=== PATIENT | female | born 1935 | race Caucasian/White ===

== ENCOUNTER → 2017-03-20 | Outpatient (CLI) | payer OTHER, MEDICARE | LOC: BMCIMAGING 11:17 | PROVIDERS: ATTEND Internal Medicine | DX: M19.011 Primary osteoarthritis, right shoulder (principal); M25.511 Pain in right shoulder ==

== ENCOUNTER → 2017-07-15 | Outpatient (CLI) | payer OTHER, MEDICARE | LOC: BMCIMAGING 12:44 | PROVIDERS: ATTEND Internal Medicine | DX: J98.4 Other disorders of lung (principal); Z87.891 Personal history of nicotine dependence ==

== ENCOUNTER → 2017-08-05 | Outpatient (CLI) | payer OTHER, MEDICARE | LOC: FIMAGING 09:38 | PROVIDERS: ATTEND Internal Medicine | DX: J98.4 Other disorders of lung (principal) ==

== ENCOUNTER → 2017-09-04 | Outpatient (CLI) | payer OTHER, MEDICARE | LOC: FIMAGING 16:08 | DX: H90.5 Unspecified sensorineural hearing loss (principal) ==

== ENCOUNTER → 2017-10-11 | Outpatient (CLI) | payer OTHER, MEDICARE | LOC: BHFA 13:30 | PROVIDERS: ATTEND Internal Medicine Cardiovascular Disease | DX: R06.02 Shortness of breath (principal) | CPT/HCPCS: 78452; 93017; A9500; J2785 ==

== ENCOUNTER → 2017-11-19 | Outpatient (CLI) | payer OTHER, MEDICARE | LOC: FIMAGING 14:24 | PROVIDERS: ATTEND Internal Medicine Cardiovascular Disease | DX: Z12.31 Encounter for screening mammogram for malignant neoplasm of breast (principal) ==

== ENCOUNTER → 2018-10-03 | Outpatient (CLI) | payer OTHER, MEDICARE | LOC: BMCIMAGING 16:26 | PROVIDERS: ATTEND Internal Medicine | DX: R05 Cough (principal) ==

== ENCOUNTER → 2018-10-09 | Outpatient (CLI) | payer OTHER, MEDICARE | LOC: FIMAGING 13:18 | PROVIDERS: ATTEND Internal Medicine | DX: J84.10 Pulmonary fibrosis, unspecified (principal); I77.819 Aortic ectasia, unspecified site; I25.83 Coronary atherosclerosis due to lipid rich plaque ==

== ENCOUNTER → 2018-11-24 | Outpatient (CLI) | payer OTHER, MEDICARE | LOC: FIMAGING 15:14 | PROVIDERS: ATTEND Internal Medicine | DX: Z12.31 Encounter for screening mammogram for malignant neoplasm of breast (principal) ==

== ENCOUNTER → 2019-02-03 | Outpatient (CLI) | payer OTHER, MEDICARE | LOC: BMCIMAGING 14:53 ==